=== PATIENT | male | born 1970 | race Hispanic/Latino ===

== ENCOUNTER 2016-10-30 11:26 | Emergency (ER) | payer OTHER ==
[~2016-10-30] VITALS: Ht 154.9 cm; Wt 87.3 kg
[2016-10-30 11:28] VITALS: BP 159/109; PULSE 105; RESP 16; O2SAT 100
--- NOTE | 2016-10-30 11:37 | ED.REPORT ---
HPI-Chest Pain 40 and Over Date of Service Oct 30, 2016 ED Provider: Eliot Segal MD Pt is a 45 year old male with a hx of DMII, [place] x2, CABG and a current UTI on antibiotics presenting to the ED complaining of a 6/10 pounding headache onset today. Associated symptoms include epigastric cramping (waxing and waning for 2 months), indigestion, foul belching, short term memory loss, feeling "flustered ", right sided tremors (1 week), dysuria, LE swelling. Denies diaphoresis. Pt has been followed by neurology at in the past due to short term memory loss and had headaches, but underwent an extensive workup that he reports was negative was negative.. He states that his glucose levels have been consistently around 400-500 for the past 2 weeks. This morning, his blood glucose was 256. Pt states that when he went to the ER and had to have a CABG, he thought he just had heartburn. Tells me that his reason for going to urgent care today it has been going on long enough that he decided he should get "checked out" Nursing Notes Stated Complaint: CHEST PAIN Chief Complaint: Chest Pain Nursing Notes Reviewed: Yes ([employer], [employer] not reconciled) Allergies: Coded Allergies: fish derived (Verified Allergy, Intermediate, Rash, 04/29/16) Scheduled Amoxicillin Susp (Amoxicillin Susp) 400 Mg/5 Ml Susp 800 MG PO BID Famotidine (Famotidine) 20 Mg Tablet 20 MG PO BID Omeprazole (Omeprazole) 20 Mg Capsule.dr 20 MG PO DAILY Miscellaneous Medications Atorvastatin Calcium (Atorvastatin Calcium) 80 Mg Tablet Cephalexin (Cephalexin) 250 Mg/5 Ml Susp.recon Insulin Aspart (NovoLOG U-100 Pen) 100 Unit/Ml Insuln.pen Insulin Glargine,Hum.rec.anlog (Toujeo Solostar) 300 Unit/Ml (1.5 Ml) Insuln.pen Liraglutide (Victoza 3-Steven) 0.6 Mg/0.1 Ml Pen.injctr General Time Seen by MD: 11:35 Chief Complaint Chest pain Hx Obtained From: Patient, EMS Arrived By: Ambulance Sudden in Onset?: No Onset Occurred: Just prior to arrival Symptom Duration: Intermittent Location: : Epigastric Quality: Cramping, Painful Severity: Current: Pain level 6 out of 10 Severity: Maximum: Moderate Recent Healthcare: No recent hospitalization, Recent doctor visit Similar Sx Previous: Yes Past Medical History Past Medical History Notes: Last ED Visit 04/2016 - [facility] Past Medical History H/O migraines, followed by neurology Type 2 DM [place] x2 Stress echo 10/26/2012 showing educed exercise capacity; apical infarction; no ischemia at 155 bpm Gout Anxiety Hearing loss/tinnitus obstructive sleep apnea cellulitis Reports: Coronary artery disease, Hyperlipidemia Past Surgical History CABG, 2 vessel graft Review of Systems GI: Reports: Abdominal pain Musculoskeletal: Reports: Extremity swelling Skin: Denies Diaphoresis Neurologic: Reports: Headache, Shaking Complete sys rev & neg: except as marked. Female: Reports: Dysuria Physical Exam Initial Vital Signs Vital Signs (First) Date Time Temp Pulse Resp B/P Pulse Ox O2 Delivery O2 Flow Rate FiO2 10/30/16 11:28 36.6 105 16 159/109 100 Room Air Initial VS: Reviewed, Vital signs abnormal (low grade tachycardia, HTN) Head / Eyes: Atraumatic, Normocephalic, PERRL ENT: Mucous membranes moist, Conjunctiva normal, No scleral icterus Skin: Warm, Dry, No cyanosis General/Constitutional: Awake, Alert, No acute distress, Well appearing Respiratory / Chest: Breath sounds NL, Breath sounds = bilat, No respiratory distress, No rales, No rhonchi, No wheezing, No stridor, No chest tenderness Cardiovascular: Heart rate NL, Regular rhythm, Heart sounds NL, No murmurs, Peripheral circulation NL, Pulses = bilaterally, No gross BP differential Abdomen: Soft, Non-tender Neck: No JVD Lower Extremity / Pelvis / MS: Neurologic intact, Vascular intact For his size, his legs look edematous or obese, skin folds over socks. No pitting edema or cellulitis. Almost the same morphology as elephantiasis but it is not elephantiasis. Neurologic: Oriented X3, Speech NL, No motor deficits, No sensory deficits, CN II - XII intact, Cerebellar NL Interpretation & Diagnostics Lab Results Interpretation Result Diagram: 10/30/16 1151 10/30/16 1151 Test 10/30/16 11:51 10/30/16 12:54 White Blood Count 9.0th/mm3 (3.8-10.1) Red Blood Count 5.98mil/mm3 (4.40-5.80) Hemoglobin 15.1g/dL (13.8-17.2) Hematocrit 44.6% (41.0-50.0) Mean Corpuscular Volume 74.6fL (81-100) Mean Corpuscular Hemoglobin 25.3pg (27.0-35.0) Mean Corpuscular Hemoglobin Concent 33.9% (32.0-37.0) Red Cell Distribution Width 15.0% (12.3-15.4) Platelet Count 224bil/L (150-400) Neutrophils (%) (Auto) 65.4% (40-74) Lymphocytes (%) (Auto) 25.2% (14-46) Monocytes (%) (Auto) 5.4% (4-12) Eosinophils (%) (Auto) 3.4% (0-5) Basophils (%) (Auto) 0.4% (0-3) Sodium Level 135mEq/L (134-144) Potassium Level 3.9mEq/L (3.5-5.2) Chloride Level 97mEq/L (97-108) Carbon Dioxide Level 25mmol/L (18-29) Blood Urea Nitrogen 8mg/dL (6-24) Creatinine 0.79mg/dL (0.76-1.27) Estimat Glomerular Filtration Rate 113mL/min (>59) Glucose Level 146mg/dL (60-99) Calcium Level 9.4mg/dL (8.5-10.1) Magnesium Level 1.7mg/dL (1.6-2.6) Total Bilirubin 0.3mg/dL (0.0-1.2) Aspartate Amino Transf (AST/SGOT) 17U/L (0-50) Alanine Aminotransferase (ALT/SGPT) 26U/L (0-44) Alkaline Phosphatase 95U/L (25-150) Troponin T 0.010ug/L (0.0-0.011) Total Protein 7.0g/dL (6.4-8.4) Albumin 3.9g/dL (3.4-5.0) Hold Elise Top Tube Received (Received) Urine Color Yellow (YELLOW) Urine Appearance Cloudy (CLEAR,HAZY) Urine pH 8.0 (5.0-8.0) Urine Specific Sod 1.021 (1.003-1.035) Urine Protein Negativemg/dL (NEG,TRACE) Urine Glucose (UA) Negativemg/dL (NEGATIVE) Urine Ketones Negativemg/dL (NEGATIVE) Urine Occult Blood Negative (NEGATIVE) Urine Nitrite Negative (NEGATIVE) Urine Bilirubin Negative (NEGATIVE) Urine Urobilinogen Normalmg/dL (NORMAL) Urine Leukocyte Esterase Negative (NEGATIVE) Urine RBC 0-2/hpf (0-2) Urine WBC 0-5/hpf (0-5) Urine Epithelial Cells Few/hpf (NONE-MOD) Urine Crystals Amorphous phosphates Urine Bacteria None/hpf (NONE-FEW) Urine Hyaline Casts None/lpf (NONE) Urine Granular Casts None seen (NONE SEEN) Urine Waxy Casts None seen (NONE SEEN) Urine Red Blood Cell Casts None seen (NONE SEEN) Urine White Blood Cell Casts None seen (NONE SEEN) Urine Mucus None seen (None Seen) Urine Trichomonas None seen (NONE SEEN) Urine Yeast None (NONE SEEN) Urinalysis Comment None Urine Culture Reflexed Not indicated Lab Results Interpretation: CBC normal CMP normal Troponin negative UA negative-patient on antibiotics ECG Interpretation ECG Interpretation: Borderline ST elevation, non specific V1-V2 without reciprocal changes. Normal concavity. Previous history of anterior [place]. I was able to obtain a prior EKG dated May 04, 2016 which is unchanged. No ST segment elevation or acute coronary syndrome. Time: 11:41 Interpreted by: ED physician Normal ECG Interpretation: Normal rate (97), Normal sinus rhythm X-Ray Chest Interpretation Chest Xray Interpretation: IMPRESSION: Acute disease is not seen in the upright portable chest. Dictated by: Khoa Roberson M.D. on 10/30/2016 at 13:01 View: Portable, 1 view Interpretation / Wet Read by: Interpret - Radiologist Re-Eval/Medical Decision Med Decision/Clinical Course This is a 45-year-old male who presents with a multitude of complaints and wanted Checked out. This is a patient with known heart disease, with poorly controlled diabetes, who presents complaining of 2 months of intermittent headaches, intermittent atypical sharp chest discomfort that is nonexertional and not associated with dyspnea, diaphoresis, nausea or vomiting, but complaint of frequent "heartburn", a complaint of intermittent left-sided abdominal discomfort, and a complaint of persistent mild dysuria having almost completed a course of cephalexin for urinary tract infection. For [place] little bit of a headache, and noted today that finally prompted him as his symptoms are basically been fairly continuous to get checked out at urgent care and with his complex history was referred to the ED for further evaluation. Reports his chief complaint was his mild intermittent sharp headache. He has only a trace headache at present. This resolved with some promethazine in the department. He has no red flags for need for emergent imaging. He is no findings of meningitis or subarachnoid indicate a need for lumbar puncture. He has a normal neurologic exam. He is not currently having any chest discomfort either. He does have frequent "heartburn". He is not taking any medication for that. He reports his chest discomfort is nonexertional, is not associated with dyspnea, there is been no diaphoresis, no nausea or vomiting. It has been ongoing for 2 months without change - as has his "heartburn". He reports his sugars and been elevated recently, although they are normal in the department. This may be in part attributable to the recent UTI for which he is on antibiotics, but he still has a complaint of some dysuria. This is a patient with multiple comorbidities with a multitude of complaints. He has no red flags to indicate a need for emergent neuro imaging, is currently without headache at present. Certainly in a patient with a previous CABG diabetes symptoms of heartburn could be an indicator of heart disease-but it is quite reassuring that with 2 months of nearly daily continue his heartburn he does not have acute EKG changes -as an old EKG was obtained from [facility], and his troponin is negative. This argues strongly against a primary cardiac etiology in terms of his presentation today. 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 His clinical abdominal exam is entirely benign with no point tenderness or peritonitis. His labs are also reassuring. Again his symptoms been going on for an extended period of time and I am not finding indication for emergent imaging in the department at this time. Given the extended time of symptoms, and the lack of troponin, EKG or other hard exam findings, he becomes reasonable to initiate a trial of antacid therapy as well-again with close follow-up with his [facility] physicians. Lastly also complains of some dysuria, and he is on treatment cephalexin-his current urinalysis is negative. I have no access to any prior UA culture results. The patient is recently asking for an extension given his ongoing symptoms of antibiotic coverage, and would like to switch to oral amoxicillin liquid. I therefore went ahead and wrote a prescription as I do not think is unreasonable in the setting of persistent symptoms. The need for close follow- up however was reviewed. Episodes of hyperglycemia, but is euglycemic in the department. He has multiple complex issues, and does merit [id number] is not demonstrating findings need for emergent admission. However while I have provided reassurance given his laboratory findings today, I have also carefully indicated that if the patient has worsening symptoms-new chest pain, new shortness of breath, exertional symptoms, diaphoresis, nausea or vomiting, GI bleeding, etc. he needs to return directly to the ED for reevaluation. Discharge instructions reviewed. Return precautions reviewed. She is discharged clinically asymptomatic. Source of Hx: Old records Time of Eval: 13:42 Patient Status: Condition improved Re-Evaluation/Progress Note: Discussed x ray and lab results. Time of Eval: 14:12 Patient Status: Condition improved Re-Evaluation/Progress Note: Discussed plan for discharge. Pt understands and agrees with plan. All pt questions addressed. Differential Diagnosis: Positive: Chest pain, acute, Negative: Acute coronary syndrome, Acute myocardial infarct, Congestive heart failure, Dysrhythmia, Esophageal rupture, Gun shot wound chest, Hypertroph cardiomyopathy, Pneumonia, Pneumothorax, Pulmonary edema, Pulmonary embolism Counseled Regarding: Diagnosis, Lab results, Need for follow-up, When/why to return to ED Discharge & Departure Primary Impression: Headache Headache type: unspecified Headache chronicity pattern: chronic headache Intractability: not intractable Qualified Code: R51 - Headache Additional Impressions: HTN (hypertension) Hypertension type: unspecified secondary hypertension Hypertension goal: unspecified goal Qualified Code: I15.9 - Secondary hypertension, unspecified UTI (urinary tract infection) Urinary tract infection type: acute cystitis Hematuria presence: without hematuria Qualified Code: N30.00 - Acute cystitis without hematuria GERD (gastroesophageal reflux disease) Esophagitis presence: esophagitis presence not specified Qualified Code: K21.9 - Gastro-esophageal reflux disease without esophagitis Abdominal pain Abdominal location: generalized Qualified Code: R10.84 - Generalized abdominal pain Chest pain Chest pain type: unspecified Qualified Code: R07.9 - Chest pain, unspecified Disposition: Home Discharge Condition All VS Reviewed: Yes Condition: Improved Additional Instructions: 1. Your blood tests in the emergency department were normal, including your blood glucose. There are test did not reveal any markers of a heart attack. Your test did not reveal any markers of a dangerous cause of the abdominal discomfort. 2. Your urine tests also were normal, suggesting that the treatment for the UTI you are on cephalexin for is appropriate, but given you do have symptoms still, I agree with her doctor about extending the course of treatment end of written for prescription for another 7 days. 3. For your reflux/heartburn symptoms I recommend taking omeprazole 20mg once a day. This medicine usually works very well, but he can require taking daily for 5-7 days before it really starts to help symptoms. So in the interim, you can also take [id number] famotidine 20 mg up to twice a day. 4. Call your doctor at [facility] to schedule follow-up. 5. If you have new or worsening symptoms-if you have new chest pain, shortness of breath, diaphoresis, for example return to the emergency department Referrals: OTHER,PHYSICIAN (PCP) Scribe Attestation Portions of this note were transcribed by Zuly Montgomery. I, Dr. Segal personally performed the history, physical exam and medical decision-making; I reviewed and confirmed the accuracy of the information in the transcribed note. Signed by: Richie Mccabe, 10/30/2016 and 1414. Eliot Segal MD Oct 30, 2016 11:37 ZULY MONTGOMERY Oct 30, 2016 11:48
[2016-10-30] MEDS ORDERED: 0.9% Sodium Chloride 1,000 ML IV ONE (11:48)
[2016-10-30] MEDS ORDERED: MeTOProlol 1 mg/mL 5 mL Inj IVPUSH ONE (11:50)
[2016-10-30] MEDS ORDERED: Promethazine Inj 6.25 MG in Dextrose 5%-Pha MIX 50 ML IV ONE (11:55)
[2016-10-30] MEDS ORDERED: Famotidine Inj 20 MG in IV Premix 1 EACH IV ONE (11:55)
[2016-10-30 12:00] LABS: BASOPHILS % (AUTO) 0.4 % (0-3); EOSINOPHILS % (AUTO) 3.4 % (0-5); MONOCYTES % (AUTO) 5.4 % (4-12); Mean Corpuscular Hemoglobin 25.3 pg (27.0-35.0); Mean Corpuscular Volume 74.6 fL (81-100); NEUTROPHILS % (AUTO) 65.4 % (40-74); Platelet Count 224 bil/L (150-400)
[2016-10-30 12:14] VITALS: BP 155/94; PULSE 91; RESP 16; O2SAT 100
[2016-10-30] MEDS ORDERED: LIRA0.6P2 (12:17)
[2016-10-30] MEDS ORDERED: INSU100I (12:17)
[2016-10-30] MEDS ORDERED: ATOR80TA77 (12:17)
[2016-10-30] MEDS ORDERED: CEPH250S (12:17)
[2016-10-30] MEDS ORDERED: INSU300I (12:17)
[2016-10-30 12:23] LABS: TROPONIN T 0.01 ug/L (0.0-0.011)
[2016-10-30 12:34] LABS: Magnesium 1.7 mg/dL (1.6-2.6)
--- NOTE | 2016-10-30 13:04 | DRSVH ---
PROCEDURE: X-RAY CHEST ONE VIEW, PORTABLE ([id number]) INDICATIONS: CP TECHNIQUE: One view of the chest was acquired. COMPARISON: None. FINDINGS: Surgical changes and devices: ekg monitor leads are present. 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 Lungs and pleura: No pleural effusions or pneumothorax. Lungs are clear. Mediastinum: Mediastinal contours appear normal. Heart size is normal. Bones and chest wall: No suspicious bony lesions. Overlying soft tissues appear unremarkable. IMPRESSION: Acute disease is not seen in the upright portable chest. Dictated by: Khoa Roberson M.D. on 10/30/2016 at 13:01 Approved by: Khoa Roberson M.D. on 10/30/2016 at 13:02
[2016-10-30 13:12] VITALS: BP 149/79; PULSE 84; RESP 18; O2SAT 100
[2016-10-30 13:23] LABS: APPEARANCE,URINE CLOUDY (CLEAR,HAZY); COLOR,URINE YELLOW (YELLOW); OCCULT BLOOD,URINE NEGATIVE (NEGATIVE); UROBILINOGEN,URINE NORMAL (NORMAL)
[2016-10-30] MEDS ORDERED: FAMO20TA4 PO (14:11)
[2016-10-30] MEDS ORDERED: OMEP20CA11 PO (14:11)
[2016-10-30] MEDS ORDERED: AMOX400S8 PO (14:18)
[2016-10-30 14:25] VITALS: BP 146/74; PULSE 83; RESP 16; O2SAT 100
== END 2016-10-30 14:26 | disposition home or self-care (01) ==
LOC: SED 12:23
DX: R51 Headache (principal); I11.9 Hypertensive heart disease without heart failure; E11.59 Type 2 diabetes mellitus with other circulatory complications; I25.10 Atherosclerotic heart disease of native coronary artery without angina pectoris; I25.2 Old myocardial infarction; N30.00 Acute cystitis without hematuria; K21.9 Gastro-esophageal reflux disease without esophagitis; R07.9 Chest pain, unspecified; R41.3 Other amnesia; R25.1 Tremor, unspecified; M79.89 Other specified soft tissue disorders; E78.5 Hyperlipidemia, unspecified; Z95.1 Presence of aortocoronary bypass graft; Z79.4 Long term (current) use of insulin; Z91.013 Allergy to seafood
CPT/HCPCS: 36415; 71010; 80053; 81000; 83036; 83735; 84484; 85025; 93005; 96374; 96375; 99285; J2550; J3490; J7030

== ENCOUNTER 2016-11-08 12:06 | Emergency (ER) | payer OTHER ==
[~2016-11-08] VITALS: Ht 154.9 cm; Wt 92.1 kg
[~2016-11-08 12:06] MED LIST: AMOX400S8 PO; ATOR80TA77; CEPH250S; FAMO20TA4 PO; INSU100I; INSU300I; LIRA0.6P2; OMEP20CA11 PO
[2016-11-08 12:21] VITALS: BP 177/101; PULSE 105; RESP 22; O2SAT 100
--- NOTE | 2016-11-08 12:45 | ED.REPORT ---
HPI-Neck Pain Free Text HPI Notes Nov 08, 2016 ED Provider: Gutierrez Jackson MD The patient is a 45 year old male with history of migraines, diabetes mellitus type II, coronary artery disease s/p CABG, hyperlipidemia, hypertension, and anxiety, who presents to the emergency department with multiple complaints. He has experienced a right occipital headache, right ear drum pressure, memory loss , neck stiffness, intermittent bilateral upper extremity tingling, and involuntary twitching in his right fingers. The twitching and numbness is new in the last 2 weeks. He describes the headache as a "pressure." His headaches have been worsening over the last 2 days and he has also noticed left-sided facial pain. He has been experiencing intermittent headaches since 2010. He has had an MRI and CT in the past for his headaches. He has an appointment with his PCP and neurologist tomorrow. When asked about any other symptoms he mentions tinnitus and chest pain/epigastric pain (he states it is probably reflux). The chest pain was not similar to his previous heart attacks. He denies weakness, visual changes, speech changes, dysphagia, bladder incontinence, bowel incontinence, fever, chills, cough, dizziness or lightheadedness. Nursing Notes Stated Complaint: NECK STIFFNESS Chief Complaint: Neuro Symptoms/ Deficits Nursing Notes Reviewed: Yes Allergies: Coded Allergies: fish derived (Verified Allergy, Intermediate, Rash, 04/29/16) ciprofloxacin (Verified Allergy, Unknown, extreme nausea, 11/08/16) Scheduled Amoxicillin Susp (Amoxicillin Susp) 400 Mg/5 Ml Susp 800 MG PO BID Famotidine (Famotidine) 20 Mg Tablet 20 MG PO BID Omeprazole (Omeprazole) 20 Mg Capsule.dr 20 MG PO DAILY Scheduled PRN Cyclobenzaprine (Cyclobenzaprine) 5 Mg Tablet 5 MG PO HS PRN PRN Spasm Miscellaneous Medications Atorvastatin Calcium (Atorvastatin Calcium) 80 Mg Tablet Cephalexin (Cephalexin) 250 Mg/5 Ml Susp.recon Insulin Aspart (NovoLOG U-100 Pen) 100 Unit/Ml Insuln.pen Insulin Glargine,Hum.rec.anlog (Toujeo Solostar) 300 Unit/Ml (1.5 Ml) Insuln.pen Liraglutide (Victoza 3-Steven) 0.6 Mg/0.1 Ml Pen.injctr General Time Seen by Provider: 12:30 Chief Complaint Neck pain Hx Obtained From: Patient Arrived By: Walk-in Sudden in Onset?: No Onset Occurred: More than a week ago... (2 weeks) Symptom Duration: Intermittent Progression Since Onset: Intermittent Quality: Painful Severity: Current: Moderate Severity: Maximum: Moderate Recent Healthcare: No recent doctor visit, No recent hospitalization Similar Sx Previous: Yes Past Medical History Past Medical History Notes: Last ED Visit 04/2016 - [facility] Past Medical History H/O migraines, followed by neurology Type 2 DM [place] x2 Gout Anxiety Hearing loss/tinnitus obstructive sleep apnea Hx of cellulitis Reports: Coronary artery disease, Hyperlipidemia, Hypertension Past Surgical History CABG, 2 vessel graft Family History Noncontributory Social History Other Social History: Local resident Ambulatory Status Independent Review of Systems Review of Systems Note: +facial pain, memory loss Constitutional: Denies: Chills, Fever Ears / Nose / Throat: Reports: Ear ringing bilateral, Earache right Respiratory: Denies: Non-productive cough Cardiovascular: Reports: Chest pain (probably reflux) Musculoskeletal: Reports: Neck pain Neurologic: Reports: Headache, Numbness (tingling in both hands), Denies: Bladder dysfunction, Bowel dysfunction, Dizziness, Focal weakness, Lightheaded, Problem walking, Slurred speech, Unable to speak, Vision change, Weakness Complete sys rev & neg: except as marked. Physical Exam Initial Vital Signs Vital Signs (First) Date Time Temp Pulse Resp B/P Pulse Ox O2 Delivery O2 Flow Rate FiO2 11/08/16 12:21 36.3 105 22 177/101 100 Room Air Initial VS: Reviewed Head / Eyes: Atraumatic, Normocephalic, PERRL ENT: Mucous membranes moist, Conjunctiva normal, No scleral icterus Respiratory: Breath sounds normal, Clear to auscultation, No respiratory distress Cardiovascular: Regular rate & rhythm, Heart sounds normal, Intact distal pulses Abdomen / GI: Soft, Non-tender, No guarding, No rebound, No distention Extremities: Vascular intact, Neuro intact, No swelling, No tenderness Skin: Warm, Dry, No cyanosis Psychiatric: Mood/affect normal, Behavior normal, Normal thought content General/Constitutional: Awake, Alert, Cooperative Neck: No midline vertebral tend Mild right lateral neck tenderness Neurologic: Oriented X3, Speech NL, No motor deficits, No sensory deficits, CN II - XII intact, Cerebellar NL, Memory NL Interpretation & Diagnostics Lab Results Interpretation Result Diagram: 11/08/16 1230 11/08/16 1230 Test 11/08/16 12:30 11/08/16 14:38 White Blood Count 9.9th/mm3 (3.8-10.1) Red Blood Count 6.26mil/mm3 (4.40-5.80) Hemoglobin 15.8g/dL (13.8-17.2) Hematocrit 46.2% (41.0-50.0) Mean Corpuscular Volume 73.8fL (81-100) Mean Corpuscular Hemoglobin 25.2pg (27.0-35.0) Mean Corpuscular Hemoglobin Concent 34.2% (32.0-37.0) Red Cell Distribution Width 15.4% (12.3-15.4) Platelet Count 249bil/L (150-400) Neutrophils (%) (Auto) 64.1% (40-74) Lymphocytes (%) (Auto) 25.3% (14-46) Monocytes (%) (Auto) 5.4% (4-12) Eosinophils (%) (Auto) 4.5% (0-5) Basophils (%) (Auto) 0.4% (0-3) Sodium Level 136mEq/L (134-144) Potassium Level 3.7mEq/L (3.5-5.2) Chloride Level 98mEq/L (97-108) Carbon Dioxide Level 22mmol/L (18-29) Blood Urea Nitrogen 11mg/dL (6-24) Creatinine 1.07mg/dL (0.76-1.27) Estimat Glomerular Filtration Rate 79mL/min (>59) Glucose Level 199mg/dL (60-99) Calcium Level 9.4mg/dL (8.5-10.1) Magnesium Level 1.8mg/dL (1.6-2.6) Total Bilirubin 0.4mg/dL (0.0-1.2) Aspartate Amino Transf (AST/SGOT) 23U/L (0-50) Alanine Aminotransferase (ALT/SGPT) 35U/L (0-44) Alkaline Phosphatase 117U/L (25-150) Troponin T < 0.010ug/L (0.0-0.011) Pro-B-Type Natriuretic Peptide 13.34pg/mL (0-121) Total Protein 8.2g/dL (6.4-8.4) Albumin 4.4g/dL (3.4-5.0) Hold Urine Received (Received) ECG Interpretation ECG Interpretation: Sinus rhythm with a rate of 89 Early repolarization in V1-V3 which is unchanged from old No ST changes T wave inversion in V5 and V6 Time: 13:35 Interpreted by: ED physician X-Ray Chest Interpretation Chest Xray Interpretation: IMPRESSION: No acute cardiopulmonary disease. Dictated by: Hitesh Mendez RRA Interpreted: Carmella Ellis MD on 11/08/2016 at 13:28 Interpretation / Wet Read by: Interpret - Radiologist CT Head Interpretation IMPRESSION: 1. No acute intracranial process. Dictated by: Tanisha Brown M.D. on 11/08/2016 at 14:32 Study: Head CT no contrast Interpretation / Wet Read by: Interpret - ED physician Re-Eval/Medical Decision Med Decision/Clinical Course 45-year-old male history of CAD and chronic headaches presenting complaining of changing headaches last 2 weeks. He reports they are more severe. He has had multiple MRIs and CTs in the past which have all been negative. He has an appointment with neurology tomorrow. Also reports some chest pain versus epigastric pain. It has been going on for quite some time he is unsure how long. Resolved with GI cocktail. Troponins negative. Chest x-ray is clear. CT brain no acute pathology. Patient will follow up with primary doctor and neurologist tomorrow as scheduled. Source of Hx: Old records Re-Evaluation/Progress : Time of Eval: 15:23 Re-Evaluation/Progress Note: Rechecked the patient. Discussed results, diagnosis, and plan for discharge. All questions were addressed. Counseled Regarding: Diagnosis, Lab results, Need for follow-up, When/why to return to ED Discharge & Departure Primary Impression: Headache Headache type: unspecified Headache chronicity pattern: unspecified pattern Intractability: not intractable Qualified Code: R51 - Headache Additional Impression: Non-cardiac chest pain Disposition: Home Discharge Condition All VS Reviewed: Yes Condition: Stable Additional Instructions: Thank you for entrusting us with your care today. Your workup today included an EKG, labs, chest x-ray, and a head CT. The results are all reassuring. Keep your appointments with your regular doctor and neurologist tomorrow. Return to the emergency department if you develop increased head pain, focal weakness or numbness, bladder or bowel incontinence, increased chest pain, vomiting, fever, shortness of breath, or any other new or concerning symptoms. Referrals: OTHER,PHYSICIAN (PCP) ED Scribe Statement Portions of this note were transcribed by Ronna Romero. I, Dr. Jackson personally performed the history, physical exam and medical decision-making; I reviewed and confirmed the accuracy of the information in the transcribed note. Signed by: Richie Hunter, 11/08/2016 at 1530. Gutierrez Jackson MD Nov 08, 2016 12:45 Ronna Romero Nov 08, 2016 13:07
[2016-11-08 12:51] LABS: BASOPHILS % (AUTO) 0.4 % (0-3); EOSINOPHILS % (AUTO) 4.5 % (0-5); MONOCYTES % (AUTO) 5.4 % (4-12); Mean Corpuscular Hemoglobin 25.2 pg (27.0-35.0); Mean Corpuscular Volume 73.8 fL (81-100); NEUTROPHILS % (AUTO) 64.1 % (40-74); Platelet Count 249 bil/L (150-400)
[2016-11-08] MEDS ORDERED: Ketorolac 30 mg/mL 2 mL Inj IM ONE (13:25)
[2016-11-08 13:26] LABS: TROPONIN T < 0.010 ug/L (0.0-0.011)
--- NOTE | 2016-11-08 13:29 | DRSVH ---
PROCEDURE: X-RAY CHEST ONE VIEW, PORTABLE ([id number]) INDICATIONS: cp TECHNIQUE: One view of the chest was acquired. COMPARISON: [facility], CR, XR CHEST 1VW (PORTABLE), 10/30/2016, 12:01. FINDINGS: Surgical changes and devices: gambling monitor leads are present. 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 Lungs and pleura: No pleural effusions or pneumothorax. Lungs are clear. Mediastinum: Mediastinal contours appear normal. Heart size is normal. Bones and chest wall: No suspicious bony lesions. Overlying soft tissues appear unremarkable. IMPRESSION: No acute cardiopulmonary disease. Dictated by: Hitesh Mendez RR Interpreted: Carmella Ellis MD on 11/08/2016 at 13:28 Transcribed by: MIKE on 11/08/2016 at 13:29 Approved by: Carmella Ellis MD, PhD on 11/09/2016 at 11:00
[2016-11-08 13:34] LABS: Magnesium 1.8 mg/dL (1.6-2.6)
[2016-11-08 13:49] VITALS: BP 151/96; PULSE 95; RESP 15; O2SAT 98
--- NOTE | 2016-11-08 14:35 | DRSVH ---
PROCEDURE: CT BRAIN WITHOUT CONTRAST ([id number]) INDICATIONS: headache recent changes in sxs TECHNIQUE: Noncontrast 4.5 mm thick angled axial sections acquired from the foramen magnum to the vertex, with c oronal reformats. COMPARISON: None. FINDINGS: Image quality: Excellent. CSF spaces: Basal cisterns are patent. No extra-axial fluid collections. Ventricles are normal in size and shape. Brain: No midline shift. No intracranial masses or hemorrhage. [place]-white matter interface is norm al. Skull and face: Calvarium and visualized facial bones are intact, without suspicious lesions. Sinuses: There is minimal scattered ethmoid mucosal thickening. Small sphenoid sinus mucous retention cyst versus polyp is noted. IMPRESSION: 1. No acute intracranial process. Dictated by: Tanisha Brown M.D. on 11/08/2016 at 14:32 Approved by: Tanisha Brown M.D. on 11/08/2016 at 14:33
[2016-11-08] MEDS ORDERED: CYCL5TAB PO (15:26)
[2016-11-08 15:31] VITALS: BP 150/88; PULSE 94; RESP 20; O2SAT 98
== END 2016-11-08 15:31 | disposition home or self-care (01) ==
LOC: SED 12:06
DX: R51 Headache (principal); R07.89 Other chest pain; M43.6 Torticollis; R41.3 Other amnesia; R20.0 Anesthesia of skin; H93.91 Unspecified disorder of right ear; I11.9 Hypertensive heart disease without heart failure; E11.59 Type 2 diabetes mellitus with other circulatory complications; I25.10 Atherosclerotic heart disease of native coronary artery without angina pectoris; I25.2 Old myocardial infarction; E78.5 Hyperlipidemia, unspecified; Z95.1 Presence of aortocoronary bypass graft; Z79.4 Long term (current) use of insulin; Z88.0 Allergy status to penicillin; Z91.013 Allergy to seafood
CPT/HCPCS: 36415; 70450; 71010; 80053; 82948; 83735; 83880; 84484; 85025; 93005; 96372; 99285; J1885